=== PATIENT | female | born 1985 | race African-American/Black ===

== ENCOUNTER → 2017-08-09 | Outpatient (CLI) | payer OTHER | LOC: M RAD 06:34 | DX: N97.9 Female infertility, unspecified (principal) ==

== ENCOUNTER 2017-11-20 20:48 | Emergency (ER) | payer OTHER ==
[2017-11-20 23:01] LABS: ANION GAP 7 MEQ/L (8-16); BLOOD UREA NITROGEN 15 MG/DL (7-18); CALCIUM LEVEL 9.1 MG/DL (8.5-10.1); CARBON DIOXIDE LEVEL 29 MEQ/L (21-32); CHLORIDE LEVEL 104 MEQ/L (98-107); CREATININE FOR GFR 0.91 MG/DL (0.55-1.30); GLOMERULAR FILTRATION RATE > 60.0 (>60); GLUCOSE, FASTING 87 MG/DL (70-100); POTASSIUM SERUM 3.9 MEQ/L (3.5-5.1); SODIUM LEVEL 140 MEQ/L (136-145)
[2017-11-21] MEDS ORDERED: PROHANCE 279.3MG/ML 5ML VIAL (A9576) As Ordered (00:03)
[2017-11-21] MEDS ORDERED: PROHANCE 279.3MG/ML 15ML VIAL (A9576) As Ordered (00:03)
== END 2017-11-21 02:30 | disposition home or self-care (01) ==
LOC: M ED 11-21 02:30
DX: G93.2 Benign intracranial hypertension (principal); H53.8 Other visual disturbances
CPT/HCPCS: A9576

== ENCOUNTER → 2017-11-23 | Outpatient (CLI) | payer OTHER ==
[2017-11-23 14:38] LABS: CSF RBC < 2 10^3/uL (<2)
[2017-11-23 14:42] LABS: APPEARANCE, CSF CLEAR (CLEAR); COLOR, CSF COLORLESS (COLORLESS); CSF DIFF IF INDICATED? NO (NO); CSF TUBE# CELL CNT TUBE 1; CSF WBC 2 /uL (0-10)
[2017-11-23 15:13] LABS: CSF TUBE# GLU TUBE 1; CSF TUBE# TP TUBE 1; GLUCOSE CSF 47 MG/DL (40-75); TOTAL PROTEIN,CSF 32.5 MG/DL (15-45)
[2017-11-28 00:08] LABS: IMMUNOGLOBULIN G CSF 1.6 mg/dL (0.0-8.6)
== END ==
LOC: M RADPRO 12:31
DX: G93.2 Benign intracranial hypertension (principal); Z79.899 Other long term (current) drug therapy
CPT/HCPCS: 62272

== ENCOUNTER → 2017-11-26 | Outpatient (CLI) | payer OTHER | LOC: M RADPRO 13:49 | DX: G93.2 Benign intracranial hypertension (principal); R51 Headache; H53.9 Unspecified visual disturbance | CPT/HCPCS: 62272 ==

== ENCOUNTER 2017-11-30 09:25 | Emergency (ER) | payer OTHER ==
[2017-11-30] MEDS: ONDANSETRON 4 MG ORAL DISINTEGRATING TAB (Q0162 PER 1MG) PO (09:45)
[2017-11-30 10:06] LABS: BASO % 0.6 % (0.0-1.0); EOS # 0.2 10^3/uL (0.0-0.50); EOS % 3.5 % (0.0-3.0); HEMATOCRIT 37.1 % (36.0-47.0); IMMATURE GRANULOCYTE % 0.3 % (0-3.0); LYMPH # 1.3 10^3/uL (1.5-4.5); LYMPH % 20.6 % (24.0-44.0); MEAN CORPUSCULAR VOLUME 82.8 fl (80.0-96.0); MONO # 0.5 10^3/uL (0.0-0.8); MONO % 8.3 % (0.0-5.0); NEUTROPHILS # 4.4 10^3/uL (1.8-7.7); NEUTROPHILS % 66.7 % (36.0-66.0); PLATELET COUNT, AUTOMATED 218 10^3/uL (150-450); RED BLOOD COUNT 4.48 10^6/uL (4.00-5.40); WHITE BLOOD COUNT 6.5 10^3/uL (4.0-10.0)
[2017-11-30 10:16] LABS: INR 0.96; PROTHROMBIN TIME 12.9 SECONDS (12.1-14.4)
[2017-11-30 10:17] LABS: PARTIAL THROMBOPLASTIN TIME 26.8 SECONDS (25.4-37.6)
[2017-11-30 10:23] LABS: CONTROL LINE HCG INT CTR LINE PRESENT; HCG, SERUM QUALITATIVE NEGATIVE (NEGATIVE)
[2017-11-30 10:28] LABS: ANION GAP 9 MEQ/L (8-16); BLOOD UREA NITROGEN 14 MG/DL (7-18); CALCIUM LEVEL 8.6 MG/DL (8.5-10.1); CARBON DIOXIDE LEVEL 18 MEQ/L (21-32); CHLORIDE LEVEL 115 MEQ/L (98-107); CREATININE FOR GFR 0.99 MG/DL (0.55-1.30); GLOMERULAR FILTRATION RATE > 60.0 (>60); GLUCOSE, FASTING 93 MG/DL (70-100); POTASSIUM SERUM 3.8 MEQ/L (3.5-5.1); SODIUM LEVEL 142 MEQ/L (136-145)
[2017-11-30] MEDS: NS 1,000 ML IV (10:28)
[2017-11-30] MEDS: KETOROLAC 30 MG/ML VIAL (J1885) IV (10:28)
[2017-11-30] MEDS ORDERED: PROHANCE 279.3MG/ML 15ML VIAL (A9576) As Ordered (21:06)
[2017-11-30] MEDS ORDERED: PROHANCE 279.3MG/ML 5ML VIAL (A9576) As Ordered (21:06)
== END 2017-11-30 22:44 | disposition home or self-care (01) ==
LOC: M ED 09:25
DX: R51 Headache (principal); G93.2 Benign intracranial hypertension
CPT/HCPCS: A9576

== ENCOUNTER 2017-12-03 18:26 | Emergency (ER) | payer OTHER | END 2017-12-03 20:34 | disposition home or self-care (01) | LOC: M ED 18:26 | DX: L76.32 Postprocedural hematoma of skin and subcutaneous tissue following other procedure (principal); R10.2 Pelvic and perineal pain; G93.2 Benign intracranial hypertension; Z79.899 Other long term (current) drug therapy | CPT/HCPCS: 99283 ==

== ENCOUNTER → 2018-07-31 | Outpatient (CLI) | payer OTHER ==
[~2018-07-31] MED LIST: ACET50CA PO; MULTTAB24 PO
[2018-07-31 10:10] LABS: BASO % 0.9 % (0.0-1.0); EOS # 0.4 10^3/uL (0.0-0.50); EOS % 8.9 % (0.0-3.0); HEMATOCRIT 39.7 % (36.0-47.0); LYMPH # 1.6 10^3/uL (1.5-4.5); LYMPH % 35.2 % (24.0-44.0); MEAN CORPUSCULAR HEMOGLOBIN 29.1 pg (27.0-33.0); MEAN CORPUSCULAR HGB CONC 32.7 g/dl (32.0-36.5); MONO # 0.4 10^3/uL (0.0-0.8); MONO % 8.4 % (0.0-5.0); NEUTROPHILS % 46.4 % (36.0-66.0); PLATELET COUNT, AUTOMATED 224 10^3/uL (150-450); RED BLOOD COUNT 4.46 10^6/uL (4.00-5.40); WHITE BLOOD COUNT 4.4 10^3/uL (4.0-10.0)
[2018-07-31 10:38] LABS: BLOOD UREA NITROGEN 9 MG/DL (7-18); CALCIUM LEVEL 8.3 MG/DL (8.5-10.1); CARBON DIOXIDE LEVEL 26 MEQ/L (21-32); CHLORIDE LEVEL 111 MEQ/L (98-107); CREATININE FOR GFR 0.85 MG/DL (0.55-1.30); GLOMERULAR FILTRATION RATE > 60.0 (>60); GLUCOSE, FASTING 85 MG/DL (70-100); POTASSIUM SERUM 4.7 MEQ/L (3.5-5.1); SODIUM LEVEL 144 MEQ/L (136-145)
== END ==
LOC: M LAB 09:11
PROVIDERS: ATTEND Podiatrist
DX: M21.621 Bunionette of right foot (principal); M79.671 Pain in right foot

== ENCOUNTER 2018-08-02 09:49 | Day surgery (SDC) | payer OTHER ==
[~2018-08-02] VITALS: Ht 172.7 cm; Wt 92.1 kg
[~2018-08-02 09:49] MED LIST changes: +LR 1,000 ML IV SCH
[2018-08-02] MEDS ORDERED: PROPOFOL 200 MG/20 ML VIAL As Ordered ONE ×2 (10:30→11:43)
[2018-08-02] MEDS ORDERED: fentaNYL 100 MCG/2 ML INJECTION (J3010) As Ordered ONE (10:30)
[2018-08-02] MEDS ORDERED: LIDOCAINE 2% INJ 100 MG/5 ML SDV (FOR ANES.) As Ordered ONE (10:30)
[2018-08-02] MEDS ORDERED: MIDAZOLAM INJ 2 MG/2 ML VIAL (J2250) As Ordered ONE (10:31)
[2018-08-02] MEDS ORDERED: LIDOCAINE 2% MDV 20 ML VIAL As Ordered ONE (10:35)
[2018-08-02] MEDS ORDERED: BUPIVACAINE HCL 0.5% 30 ML VIAL As Ordered ONE (10:35)
[2018-08-02] MEDS ORDERED: dexameTHASONE 4 MG/ML 1ML VIAL (J1100) As Ordered ONE ×2 (10:35→11:45)
[2018-08-02] MEDS ORDERED: BACITRACIN PWD 50,000 UNITS VIAL As Ordered ONE (10:36)
[2018-08-02] MEDS ORDERED: NEOSPORIN GU IRRIG 20 ML VIAL As Ordered ONE (10:36)
[2018-08-02 10:39] LABS: HCG, SERUM QUALITATIVE NEGATIVE (NEGATIVE)
[2018-08-02] MEDS ORDERED: ONDANSETRON 4MG/2ML VIAL (J2405) As Ordered ONE (11:45)
[2018-08-02] MEDS ORDERED: KETOROLAC 60 MG/2 ML VIAL (J1885) As Ordered ONE (11:46)
[2018-08-02 13:45] VITALS: BP 138/90
--- NOTE | 2018-08-02 14:39 | REP ---
Clinical: Baseline postoperative assessment. Technique: AP, lateral, oblique views. Findings: The patient is status post procedure involving the fifth metatarsal head with screw identified in satisfactory alignment noted. Overlying postoperative changes identified. Impression: Status post procedure involving the fifth metatarsal bone. Electronically Signed by Jose Muller MD 08/02/2018 02:30 P
--- NOTE | 2018-08-03 10:31 | RO ---
DATE OF SURGERY: 08/02/2018 PREOPERATIVE DIAGNOSIS: Tailor's bunion deformity (bunionette), right foot. POSTOPERATIVE DIAGNOSIS: Tailor's bunion deformity (bunionette), right foot. PROCEDURE: SURGEON: Ed Maria DPM HORTICULTURE SUPERINTENDENT: None. ANESTHESIA: Local, monitored anesthesia care (MAC). IRRIGATION: Dilute bacitracin, neomycin, polymyxin B solution. IMPLANTS UTILIZED: Arthrex 2.5 x 18 mm headless compression screw. DESCRIPTION OF PROCEDURE: Description of operation: On 08/02/2018, this 33-year-old black female was taken from her hospital room to the operating room, placed on the operating table in supine position. Following the induction of intravenous (IV) sedation, local and regional anesthesia, right lower extremity was prepped and draped in the usual aseptic manner. Attention was directed to the lateral surface of patient's right foot. There was noted to be a tailor's bunion deformity. At this time, a 5 cm lateral incision was placed over the 5th metatarsophalangeal joint. The incision was deepened through the subcutaneous tissues and all coursing venous tributaries were identified, underscored, clamped, cut, ligated, and electrocoagulated as necessary. Linear capsulotomy was then performed in the same plane as the original skin incision. The capsule and periosteal structures were dissected free dorsally and plantarly creating a capsule and periosteal type envelope. The hypertrophied lateral eminence was then osteotomized from distal to proximal through and through. Utilizing a sagittal saw, an osteotomy was performed in the distal metaphysis of the 5th metatarsal with the long plantar and short dorsal wing. Upon creation of this osteotomy, capital fragment was transposed approximately 40% of the width of the shaft of the 5th metatarsal and fixated with a 2.5 x 18 mm headless compression screw. The osteotomy was noted to the be stable in all three cardinal planes. Redundant cortical spike was then osteotomized from dorsal to plantar, through and through, and extirpated from the wound. Lateral surface was rasped to a smooth contour with a hand-held rasp. The wound was flushed with copious amounts of dilute bacitracin, neomycin, and polymyxin B solution. Capsular structures were coapted and maintained utilizing #2-0 Monocryl in a simple interrupted-type fashion. Subcutaneous tissues coapted and maintained utilizing #4-0 Monocryl in a simple interrupted-type fashion. Skin incision coapted and maintained utilizing #5-0 Monocryl in a continuous subcuticular-type fashion. This was additionally reinforced with Steri-Strips. Following the completion of surgical procedure, 4 mg of dexamethasone sodium phosphate was instilled proximal to surgical site. Attention was directed towards bandaging, where a sterile compressive bandage was applied consisting of Adaptic, 4 x 4's, 4 x 4 splints, Adi, Kerlix, and Coban. Ankle pneumonic tourniquet was rapidly deflated. Instantaneous capillary filling time was noted in digits 1 through 5 of the patient's right foot. Patient, having apparently tolerated surgical procedure well, was taken from the operating room (OR) to the recovery room for further monitoring by the anesthesia department. Postoperative instructions were given upon discharge. DUANE
== END 2018-08-02 13:55 | disposition home or self-care (01) ==
LOC: M SDC 09:49
PROVIDERS: ATTEND Podiatrist
DX: M21.621 Bunionette of right foot (principal); E66.9 Obesity, unspecified; Z79.899 Other long term (current) drug therapy
CPT/HCPCS: 28110; 36415; 73630; 84703; 88300; 97116; C1713; J0690; J1100; J1885; J2250; J2405; J3010